=== PATIENT | male | born 2000 | race Caucasian/White ===

== ENCOUNTER 2019-02-11 15:39 | Emergency (ER) | payer SELFPAY ==
[~2019-02-11] VITALS: Ht 180.3 cm; Wt 84.1 kg
[~2019-02-11 15:39] MED LIST: AMOX250S53; AMOX400S2; TYLENOL #3 ELIXIR
[2019-02-11 17:25] VITALS: BP 122/68
--- NOTE | 2019-02-11 17:53 | ED PDOC ---
Provider Note Psychiatric consult Note Chief Complaint: "I just had a moment" History of Present Illness: The patient a 18-year-old man is sent from [facility], where he sought care for a hand injury after he had become irritable and had punched a shelf. He reports that he works for [email or web address] and has been very displeased with his employment. He reports that he does have a history of depression with some low mood, chronic emptiness and some insomnia that has been present for many years. He reports that when he was at [facility] he asked for outpatient referrals and had endorsed some passive SI per report from [facility], however when asked the patient clarifies that this was hopelessness with no intention to end his life and denied specific suicidal ideation. He reports that he feels outpatient referral would be better. Collateral information from his brother who he currently lives with reports the patient does have some difficulty being around others as he is fairly shy, however he has no access to guns or other dangerous means and has not been engaging in any para-suicidal behavior or any other concerning risky behavior that would suggest that he is in imminent risk of self-harm. He reports he feels safe with his brother returning to live with him and will be around for the next few days.He notes no changes in behavior recently, consistent with patient's report that his symptoms have been at his baseline with no significant changes. Review of Psychiatric Systems: Affective: as above for depression.The patient denies any episodes of euphoria/dysphoria associated with decreased need for sleep, hedonism, talkatively or impulsivity lasting longer than 5 days. Anxiety: reports social anxiety a note unprovoked anxiety Trauma:The patient denies any traumatic events associated with nightmares or intrusive thoughts. Psychosis: The patient denies any experiences of auditory or visual hallucinations. 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 Social supports: brother Current housing: lives with brother and two roommates: Marital/romantic: single unmarried Addiction History: Alcohol: denies excessive use Cannabis: reports intermittent use Opioids: denies Stimulants: denies Sedatives: denies Misc: reports half a pack a day of tobacco use Medical Problems: No significant medical problems Mental Status Exam: Vitals: reviewed General: Well dressed with good hygiene Speech: Spontaneous and fluid Thought processes: Linear and logical Thought content: Future orientated Abstract reasoning, and computation: Intact Description of associations: Intact Description of abnormal or psychotic thoughts:Denies any suicidal or homicidal ideation. Denies any auditory or visual hallucinations. Does not appear to be responding to internal stimuli. Does not appear to be endorsing any bizarre or paranoid ideation. Judgment: fair Insight: fair Orientation: Alert and orientated 3 Recent and remote memory: Intact Attention span and concentration: Intact Fund of knowledge: Adequate Mood: "okay" Affect: Euthymic with a full range Assessment: the patient a 18-year-old man with a reported history of mild depression symptoms presents after concern due to statements made at [facility], when he is interviewed and collateral information is collected is clear the patient does not meet involuntary criteria, as he is denying any specific suicidal ideation homicidal ideation, with a normal mental status exam, collateral information confirms the patient series of events, he is amenable to seeking help, has a reasonable safety plan and lack of access to dangerous means as confirmed by collateral. He declines voluntary admission and thus must be discharged in good gem with referrals for outpatient behavioral health. He with a normal mental status exam is likely presenting after a situational disturbance, as further extended evaluation could help clarify the patient's underlying diagnosis, as to whether he has a major mental illness. Diagnostics by DSMV: Situational disturbance tobacco use disorder Recommendations/Rational Outpatient referrals for mental health JUAN Ricks DO Feb 11, 2019 17:53
== END 2019-02-11 17:27 | disposition home or self-care (01) ==
LOC: M ED 15:39
DX: F32.9 Major depressive disorder, single episode, unspecified (principal); F17.210 Nicotine dependence, cigarettes, uncomplicated